=== PATIENT | male | born 1995 ===

== ENCOUNTER 2025-09-20 18:32 | Emergency (ER) | payer BC, SELFPAY ==
[2025-09-20] VITALS (10 sets, daily range): BP systolic 118–142; BP diastolic 70–89; PULSE 62–88; RESP 16–19; TEMP 36.6; O2SAT 96–100
--- NOTE | ~2025-09-20 | CT_ITS ---
EXAMINATION: CT brain wo con, stroke protocol: DATE: 09/20/2025 19:03 INDICATION: Dizziness, speech difficulty. TECHNIQUE: Computed tomography (CT) of the head was performed without intravenous contrast. The mA was adjusted according to patient size. Iterative reconstruction technique was employed. The dose-length product was 681.00 mGy-cm. COMPARISON: None FINDINGS: No acute intracranial bleed. No acute thrombus of middle cerebral artery. Ventriculomegaly or midline shift. IMPRESSION: 1. No acute findings. Report conveyed to attending physician by telephone call at 7:07 PM. Reviewed, dictated and finalized at location T. GER CREATIVE
--- NOTE | ~2025-09-20 | CT_ITS ---
EXAMINATION: CT angiogram head and neck: DATE: 09/20/2025 INDICATION: Speech difficulty. TECHNIQUE: CT angiogram of head and neck was performed with 100 cc of IV contrast. Multiplanar and 3-D reconstruction obtained. COMPARISON: CT head without contrast dated 09/20/2025. FINDINGS: The vertebral arteries are patent in the neck on both sides. No hemodynamically significant obstruction of the common and internal carotid arteries in the neck. No evidence of dissection. Major arteries of [place] are patent. Dural venous sinuses are patent. Evaluation the skull base is compromised by motion artifacts. IMPRESSION: 1. No significant obstructive lesions of the carotid arteries in the neck. Vertebral arteries are patent on both sides. 2. Evaluation of intracranial circulation is compromised by artifacts due to motion at the skull base. No significant focal lesions are seen involving major arteries. Dural venous sinuses are patent. Reviewed, dictated and finalized at location T. E OPERATOR IMPRESSION: 1. No significant obstructive lesions of the carotid arteries in the neck. Vert ebral arteries are patent on both sides. 2. Evaluation of intracranial circulation is compromised by artifacts due to mo tion at the skull base. No significant focal lesions are seen involving major a rteries. Dural venous sinuses are patent.
--- NOTE | 2025-09-20 18:48 | ECG_ITS ---
Test Date: 2025-09-20 19:08:20 Measurements Intervals [place] Rate: 87 P: 24 MA: 141 QRS: 24 QRSD: 88 T: 10 QT: 353 QTc: 425 Interpretive Statements SINUS RHYTHM NONSPECIFIC T-WAVE ABNORMALITY- INFERIOR LEADS BASELINE ARTIFACT- I, II, III, AVL, AVF, V3-V5 BORDERLINE ECG No previous ECG available for comparison Electronically Signed On 09-20-2025 20:33:36 HEEL BRUSHER by Ashish Alexander D.O.
[2025-09-20 19:00] LABS: Hematocrit 49.2 % (42.0-52.0); Hemoglobin 16.4 g/dL (14.0-18.0); Immature Granulocyte Percent A 0.2 % (0-0.5); Lymphocytes Absolute Auto 3.19 K/mm3 (0.9-3.2); Mean Corpuscular HGB Conc 33.3 g/dl (32-36); Mean Corpuscular Hemoglobin 27.1 pg (26-34); Mean Corpuscular Volume 81.2 fl (80-100); Nucleated Red Blood Cells Absolute Auto 0.000 K/mm3 (0.0-0.012); Nucleated Red Blood Cells Perc 0.0 % (0.0-0.2); Platelet Count Result 352 k/mm3 (150-375); Red Blood Count 6.06 M/mm3 (4.6-6.20); White Blood Count 8.4 K/mm3 (4.5-10.0)
[2025-09-20 19:11] LABS: INR 1.0; Partial Thromboplastin Time 28.7 Seconds (22.3-36.8); Prothrombin Time 13.0 Seconds (11.1-14.7)
[2025-09-20 19:15] LABS: Alanine Aminotransferase 35 U/L (6-50); Albumin Level 5.3 g/dL (3.5-5.1); Alkaline Phosphatase 72 U/L (38-126); Anion Gap 10 mmol/L (4-12); Aspartate Amino Transferase 33 U/L (17-59); Bilirubin,Total 0.7 mg/dL (0.2-1.3); Blood Urea Nitrogen 18 mg/dL (9-20); Calcium 9.7 mg/dL (8.4-10.2); Carbon Dioxide 25 mmol/L (22-30); Chloride 100 mmol/L (98-107); Estimated CRCL calculation 86 ml/min; Estimated Glomerular Filt Rate > 60; Glucose 104 mg/dL (65-110); Potassium 3.7 mmol/L (3.4-5.0); Sodium 135 mmol/L (137-145); Total Protein 9.3 g/dL (6.3-8.2)
[2025-09-20 19:27] LABS: Troponin I < 0.012 ng/mL (0.000-0.034)
--- NOTE | 2025-09-20 19:49 | ED.NEUROSD ---
HPI - Neuro Symptoms/Deficit General Chief Complaint: Suspected CVA Stated Complaint: lethargic, confused Time Seen by Provider: 09/20/25 18:59 Source: patient and family Mode of arrival: ambulatory Limitations: no limitations History of Present Illness HPI Narrative: This is a 30-year-old male with no significant past medical history presents the ED for altered mental status. Per , patient had a some feeling is this morning to his left upper and lower teeth and did have local anesthetic for that. She states that about 215 today, he had onset stuttering speech and extreme dizziness that was new for him. He did not take any pain medications for this today. Denies any illicit substance abuse. He still reports dizziness in the reports that that speech is slightly better but he is still stuttering which is new for him. Related Data Allergies Allergy/AdvReac Type Severity Reaction Status Date / Time Penicillins Allergy Unknown Hives / Verified 10/15/21 11:26 Red Face Review of Systems Review of Systems: Gen.: Denies fevers or chills Eyes: Denies eye pain or visual change ENT: Denies congestion Respiratory: Denies shortness of breath or cough CV: Denies chest pain or palpitations GI: Denies abdominal pain nausea, emesis or diarrhea denies burning, urgency, frequency or hematuria Musculoskeletal: Denies back pain or muscle pain Neuro: As per HPI Skin: Denies rash Except as documented, all other systems reviewed and negative Exam Narrative: APPEARANCE: No acute distress, nontoxic, resting in bed EYES: EOMI HEENT: Normocephalic, atraumatic, OMM RESPIRATORY: No respiratory distress Clear to auscultation bilaterally with no rhonchi wheezing or rales. CARDIOVASCULAR: Regular rate and rhythm without murmurs rubs or gallops. ABDOMINAL: Soft, nontender, nondistended, no rebound or guarding MUSCULOSKELETAl: Moves all extremities. No clubbing, cyanosis or edema. NEURO: Awake and alert. Following commands, speech normal, no focal deficits. NIHSS 1 SKIN:: Warm, dry. No rashes lesions or abrasions PSYCHIATRIC: Normal affect/mood, Course Vital Signs Vital signs: Vital Signs Temperature 98 F 09/20/25 18:35 Pulse Rate 88 09/20/25 18:35 Respiratory Rate 16 09/20/25 18:35 Blood Pressure 131/86 09/20/25 18:35 Pulse Oximetry 100 12/11/25 18:35 Oxygen Delivery Room Air 09/20/25 18:35 Temperature 98 F 09/20/25 18:35 Pulse Rate 74 09/20/25 21:54 Respiratory Rate 19 09/20/25 21:54 Blood Pressure 121/89 09/20/25 21:49 Pulse Oximetry 97 09/20/25 21:54 Oxygen Delivery Room Air 09/20/25 18:35 [facility] Narrative Medical decision making narrative: 30-year-old male Presenting for altered mental status. On initial evaluation patient was in no acute distress afebrile, hemodynamic stable. Differentials include but are not limited to: CVA, TIA, ICH, meningitis, UTI, cancer, drug intoxication, hypoglycemia, electrolyte abnormality Notable exam findings: Word-finding difficulties, may be mildly slurred speech, no focal neurologic deficits. I personally reviewed the patient's lab result. Notable lab findings: CBC and CMP without significant abnormalities. A UA with ketones. UDS positive for cannabinoids. I personally reviewed the patient's images: CT head and CTA head/neck showed no acute process. I personally reviewed the patient's EKGs: Normal sinus rhythm rate of 87, normal axis normal intervals, no acute ST or T-wave changes And patient was given 2 L NS bolus. He was given meclizine as he was complaining of some dizziness as well. He continued to have altered speech per the and he still felt that he was not able to complete his sentences. Because of this, he would benefit from admission for further evaluation. I did discuss case with hospitalist, Dr. Del Angel, did accept the patient for admission. However, after acceptance the patient did report that he was feeling much better at this time. After further discussion with the patient, he recently changed his diet and completely cut out also does and has only been in taking about 1200 calories daily. Suspect that this is contributing to his change in mental status in the setting of dental procedures. He was deemed appropriate for discharge at this time. He was advised to follow-up with his PCP in the next week for re-evaluation. Patient was agreeable to this plan. Given strict return precautions. Differential Diagnosis Differential Diagnosis: CVA, TIA, ICH, meningitis, UTI, cancer, drug intoxication, hypoglycemia, electrolyte abnormality Lab Data [facility] Lab Attestation statement: I personally reviewed the patient's lab results. 12/11/25 18:52 09/20/25 18:52 Labs: Lab Results 09/20/25 09/20/25 09/20/25 Range/Units 18:44 18:52 20:31 WBC 8.4 (4.5-10.0) K/mm3 RBC 6.06 (4.6-6.20) M/mm3 Hgb 16.4 (14.0-18.0) g/dL Hct 49.2 (42.0-52.0) % MCV 81.2 (80-100) fl MCH 27.1 (26-34) pg MCHC 33.3 (32-36) g/dl RDW 13.2 (11.5-14.5) % Plt Count 352 (150-375) k/mm3 MPV 8.7 (7.4-10.4) fl Immature Gran % (Auto) 0.2 (0-0.5) % Neut % (Auto) 50.4 (45.5-73.1) % Lymph % (Auto) 38.1 (18.3-44.2) % [place] % (Auto) 6.9 (2.6-8.5) % Eos % (Auto) 3.9 (0-4.4) % Baso % (Auto) 0.5 (0.2-1.2) % Lymph # (Auto) 3.19 (0.9-3.2) K/mm3 [place] # (Auto) 0.6 (0.1-0.6) K/mm3 Eos # (Auto) 0.3 (0-0.3) K/mm3 Baso # (Auto) 0.0 (0.0-0.1) K/mm3 Abs Immat Gran (auto) 0.02 (0.00-0.031) K/mm3 Absolute Neuts (auto) 4.2 (1.3-6.7) K/mm3 Absolute Nucleated RBC 0.000 (0.0-0.012) K/mm3 Nucleated RBC % 0.0 (0.0-0.2) % PT 13.0 (11.1-14.7) Seconds INR 1.0 APTT 28.7 (22.3-36.8) Seconds Sodium 135 L (137-145) mmol/L Potassium 3.7 (3.4-5.0) mmol/L Chloride 100 (98-107) mmol/L Carbon Dioxide 25 (22-30) mmol/L Anion Gap 10 (4-12) mmol/L BUN 18 (9-20) mg/dL Creatinine 1.10 (0.7-1.3) mg/dL Estim Creat Clear Calc 86 ml/min Estimated GFR > 60 (59 - ) Glucose 104 (65-110) mg/dL POC Capillary Glucose 108 H (65-105) mg/dl Lactic Acid 1.1 (0.7-2.0) mmol/L Calcium 9.7 (8.4-10.2) mg/dL Total Bilirubin 0.7 (0.2-1.3) mg/dL AST 33 (17-59) U/L ALT 35 (6-50) U/L Alkaline Phosphatase 72 (38-126) U/L Troponin I < 0.012 (0.000-0.034) ng/mL Total Protein 9.3 H (6.3-8.2) g/dL Albumin 5.3 H (3.5-5.1) g/dL Urine Color Yellow (Yellow) Urine Appearance Clear (Clear) Urine pH 6.0 (5.0-9.0) Ur Specific [place] > 1.045 H (1.001-1.035) Urine Protein Negative (Negative) mg/dL Urine Glucose (UA) Negative (Negative) mg/dL Urine Ketones 2+ H (Negative) mg/dL Ur Blood (Man) Negative (Negative) Urine Nitrate Negative (Negative) Urine Bilirubin Negative (Negative) Urine Urobilinogen 1.0 (<2.0) mg/dL Leukocyte Esterase Rfl Negative (Negative) GAMA/UL Urine Opiates Screen Negative (Negative) Urine Methadone Screen Negative (Negative) Ur Barbiturates Screen Negative (Negative) Ur Phencyclidine Scrn Negative (Negative) Ur Amphetamine Screen Negative (Negative) U Benzodiazepines Scrn Negative (Negative) Urine Cocaine Screen Negative (Negative) U Cannabinoids Screen Positive A (Negative) Ethyl Alcohol < 10 (<10) mg/dL Imaging Data Attestation: I personally reviewed and interpreted this imaging study as follows: Radiologist's impression: ITS Impressions Head CT 09/20/25 19:04 IMPRESSION: 1. No acute findings. Report conveyed to attending physician by telephone call at 7:07 PM. Head/Neck CTA 09/20/25 19:08 IMPRESSION: 1. No significant obstructive lesions of the carotid arteries in the neck. Vertebral arteries are patent on both sides. 2. Evaluation of intracranial circulation is compromised by artifacts due to motion at the skull base. No significant focal lesions are seen involving major arteries. Dural venous sinuses are patent. Discharge Plan Discharge Clinical Impression: Alteration in speech Altered mental status Qualifiers: Altered mental status type: transient alteration of awareness Qualified Code(s): R40.4 - Transient alteration of awareness Patient Disposition: Home Condition: Stable Instructions: Antibiotic Form, Altered Mental Status (ED) Additional Instructions: Follow-up with your PCP in the next week for re-evaluation. Return to the ED for any new or worsening symptoms. Patient Language: Mohawk Prescriptions: No Action benzonatate 100 mg capsule 100 mg PO TID PRN (Reason: cough) Qty: 30 0RF Follow-up/Referrals: PHYSICIAN,RECRUITING ASSISTANT [Primary Care Provider, Internal Medicine]
[2025-09-20] MEDS: ONDANSETRON INJ 4 MG/2 ML VIAL IV PUSH (20:26)
[2025-09-20] MEDS: MECLIZINE HCL 25 MG TABLET PO (20:26)
[2025-09-20] MEDS: SODIUM CHLORIDE 0.9% IV 1,000 ML 999 ML IV CONT (20:26)
[2025-09-20 20:41] LABS: Add Urine Microscopic? NO; Appearance Urine Clear (Clear); Glucose Urine UA Negative (Negative); Leukocyte Esterase Ur Negative LEU/UL (Negative); Nitrate Urine Negative (Negative); Specific Grav Ur > 1.045 (1.001-1.035)
--- OUTSIDE RECORDS SUMMARY | 2025-09-20 20:54 | XMS_ITS | Clinical Summary ---
Author Organization [facility] Address [address] [place] [address] Care Team Providers Care Wind Energy Project Manager Name Role Phone Unavailable Primary Care Provider Unavailabl e Social History Tobacco Use Types Packs/Day Years Used Date Smoking Tobacco: Never Assessed Sex and Gender Information Value Date Recorded Sex Assigned at Not on file Legal Sex Male 12:09 PM EDT Gender Identity Not on file Sexual Orientation Not on file Plan of Treatment Not on file Medical Devices Not on file Insurance [facility]
[2025-09-20 21:01] LABS: Cannabinoid Screen Urine Positive (Negative)
--- NOTE | 2025-09-20 21:58 | PC.NURSE ---
Pt reports that since the fluids and meclizine has kicked in his symptoms have been gradually improving. Pt reports he is now speaking better (clear speech, A&Ox4, fluent conversation) and able to focus his vision without sensation of dizziness. Pt was able to stand and ambulate around the room without any of the symptoms recurring. Pt asking if he needs to stay in the hospital, and was wanting to leave tonight if possible, as he has multiple small kids at home and he is feeling much better. MD Chung to bedside to speak with patient.
--- OUTSIDE RECORDS SUMMARY | 2025-09-21 00:10 | XMS_ITS | Clinical Summary ---
Author Organization [facility] Address [address] [place] [address] Care Team Providers Care Cabin Furnishings Installer Name Role Phone Unavailable Primary Care Provider Unavailabl e Social History Tobacco Use Types Packs/Day Years Used Date Smoking Tobacco: Never Assessed Sex and Gender Information Value Date Recorded Sex Assigned at Not on file Legal Sex Male 12:09 PM EDT Gender Identity Not on file Sexual Orientation Not on file Plan of Treatment Not on file Medical Devices Not on file Insurance [facility]
--- OUTSIDE RECORDS SUMMARY | 2025-09-21 00:10 | XMS_ITS | Clinical Summary ---
Author Organization [place] [address] [place] Address [address] [place] [id number] Care Team Providers Care Manager Customs Name Role Phone Titus Velásquez MD Primary Care Provider Allergies Active Allergy Reactions Criticality Noted Date Comments Penicillins Rash Medium 09/20/2023 Medications No known medications Active Problems Problem Noted Date Diagnosed Date Encounter for medical examination to establish c are 06/19/2024 Assessment & Plan (06/19/2024 10:03 AM CDT): A(n) initial well visit to establish care has been performed today. Krishna Crook is not up to date on screening tests. He is in need of screen Hep B and C, and Cholesterol screening. He is not up to date on needed preventative vaccinations; He is in need of Tdap/Td and Influenza. We discussed healthy lifestyle habits, educational material has been given. Medications reviewed, changes documented as per the medical record and discussed with patient along with risks vs benefits. Specific topics reviewed: drugs, ETOH, and tobacco, importance of regular dental care, importance of regular exercise, importance of varied diet, limit TV, media violence, minimize junk food, and seat belts. Return in 1 year Immunizations Immunization Administration Dates Next Due Tdap 06/19/2024 Surgical History Surgery Date Site/Laterality Comments HAND TENDON SURGERY Left SHOULDER ARTHROSCOPY W/ LABRAL REPAIR Medical History Medical History Date Comments History of multiple concussions between 7 and 11 Family History Medical History Relation Name Comments No Known Problems Brother Hypertension Father Prostate cancer Maternal Grandfather met to lung No Known Problems Mother Heart failure Paternal Grandfather Hypertension Paternal Grandfather No Known Problems Paternal Grandmother Relation Name Status Comments Brother Alive Father Alive Maternal Grandfather Maternal Grandmother Alive Mother Alive Paternal Grandfather Paternal Grandmother Alive Social History Tobacco Use Types Packs/Day Years Used Date Smoking Tobacco: Some Days Cigars Smokeless Tobacco: Current Chew Tobacco Cessation:Ready to Q uit: No Comments:Nicotine pouches AUDIT-C Answer Date Recorded Q1: How often do you have a drink containing alc ohol? 2-3 times a week 06/19/2024 Q2: How many drinks containi ng alcohol do you have on a typical day when you are drinking? 3 or 4 06/19/2024 Q3: How often do you have si x or more drinks on one occasion? 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 Not on file Not on file Not on file Last Filed Vital Signs Vital Sign Reading Time Taken Comments Blood Pressure 114/60 06/19/2024 9:31 AM CDT Pulse 87 06/19/2024 9:31 AM CDT Temperature 36.1 C (96.9 F) 06/19/2024 9:31 AM CDT Respiratory Rate 16 06/19/2024 9:31 AM CDT Oxygen Saturation 98% 06/19/2024 9:31 AM CDT Inhaled Oxygen Concentration - - Weight 89.4 kg (197 lb) 06/19/2024 9:31 AM CDT Height 162.6 cm (5' 4) 06/19/2024 9:31 AM CDT Body Mass Index 33.81 06/19/2024 9:31 AM CDT Plan of Treatment Health Maintenance Due Date Last Done Comments Varicella Vaccines (1 of 2 - 13+ 2-dose series) 2006 Pneumococcal vaccine <65 (1 of 2 - PCV) 2012 HPV Vaccines (1 - 3-dose SCDM series) 2020 Covid-19 Vaccine (3 - 2024- season) 2025, 12/27/2020 Influenza Vaccine (#1) 2025 Depression Screening 06/19/2025 06/19/2024 Regular Well Visit/Exam 18-64 06/19/2025 06/19/2024 DTaP/Tdap/Td Vaccine (2 - Td or Tdap) 06/19/203406/2024 Hepatitis B Screening Completed 06/19/2024 Hepatitis C Screening Completed 06/19/2024 Procedures Procedure Name Priority Date/Time Associated Diagnosis Comments HEPATITIS C ANTIBODY Routine 06/19/2024 10:18 AM CDT Need for hepatitis C screening test from Last 3 Months or Most Recently Relevant to Health Maintenance Results * Hepatitis C antibody Blood (06/19/2024 10:18 AM CDT) Hep C Ab Nonreactive Nonreactive Comment: Interpretive Data Nonreactive: Antibodies to HCV not detected. Does NOT exclude the possibility of recent exposure to HCV. Equivocal: Equivocal for HCV antibodies. Supplemental molecular testing will be automatically performed to determine infection status in accordance with current CDC screening recommendations. Reactive: Positive for HCV antibodies. This may represent current or past HCV infection. Supplemental molecular testing will be automatically performed to determine current infection status in accordance with current CDC screening recommendations. Interpretive data was last revised on 2019. Blood 06/19/2024 10:1 8 AM CDT 06/19/2024 2:04 PM CDT Titus Velásquez MD LAB MICROBIOLOGY - GENERAL ORDERABLES Edited Result - Final Performing Organization Address City/State/ZIP [place] Phone Number [facility] [id number] [facility] Department [place] [address] from Last 3 Months or Most Recently Relevant to Health Maintenance Insurance [facility] Care Teams Manager Customs Relationship Specialty Start Date End Date Titus Velásquez MD [address] [facility] [address] [place] [address] PCP - General Family Medicine 06/19/24
== END 2025-09-20 22:45 | disposition home or self-care (01) ==
PROVIDERS: Emergency Medicine; Emergency Provider Student in an Organized Health Care Education/Training Program
DX: R40.4 Transient alteration of awareness (principal); R47.89 Other speech disturbances; R94.31 Abnormal electrocardiogram [ECG] [EKG]
CPT/HCPCS: 36415; 70450; 70496; 70498; 80053; 80307; 81003; 82077; 82948; 83605; 84484; 85025; 85610; 85730; 93005; 96361; 96374; 99284; A9270; J2405; J7030; Q9967